=== PATIENT | female | born 1960 | race Caucasian/White ===

== ENCOUNTER 2020-09-18 18:03 | Inpatient (IN) | payer MEDICAID, OTHER ==
[~2020-09-18] VITALS: Ht 170.2 cm; Wt 62.1 kg
--- NOTE | 2020-09-18 18:16 | NUR ---
TRANSFER BY [facility] FROM [facility] IN [facility] FOR NSTEMI. PT ARRIVED WITH HEPARIN GTT INFUSING AT 6.1ML/HR, PER REPORT PT RECEIVED 3000 UNITS OF HEPARIN BOLUS, 324MG ASA, AND 1L NS BOLUS. PT PLACED ON ALL MONITORS. FALL PRECAUTIONS IN PLACE. VSS.
--- NOTE | 2020-09-18 18:33 | NUR ---
DR. CHANDLER AT BEDSIDE FOR EVAL.
[2020-09-18] MEDS ORDERED: HEPARIN 5,000 UNITS/ML, 1ML IV PRN (19:00)
[2020-09-18] MEDS ORDERED: HEPARIN 25,000 UNITS/250ML PMX 250 ML IV PRN (19:00)
[2020-09-18] MEDS ORDERED: HEPARIN 5,000 UNITS/ML, 1ML IV ONE (19:00)
[2020-09-18] MEDS ORDERED: SODIUM CHLORIDE FLUSH 10ML SYR IVF ONE (19:00)
[2020-09-18 19:06] LABS: BASOPHILS % (AUTO) 1 % (0-1); EOSINOPHILS % (AUTO) 2 % (1-7); LYMPHOCYTES % (AUTO) 20 % (22-44); MEAN CORPUSCULAR HEMOGLOBIN 28.9 pg (27.0-34.8); MEAN CORPUSCULAR HGB CONC 32.5 g/dL (32.4-35.8); MEAN PLATELET VOLUME 8.6 fL (7.4-10.4); MONOCYTES % (AUTO) 5 % (2-9); NEUTROPHILS % (AUTO) 71 % (42-75); PLATELET COUNT 357 x10^3/uL (130-400); RED BLOOD COUNT 3.18 x10^6/uL (3.82-5.3); RED CELL DISTRIBUTION WIDTH 16.1 % (9.6-15.2)
[2020-09-18 19:07] LABS: MD NO
--- NOTE | 2020-09-18 19:07 | NUR ---
REPORT GIVEN TO ANGLE MURGUIA.
--- NOTE | 2020-09-18 19:11 | NUR ---
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 PER JAMAAL OKAY TO CONTINUE AT CURRENT RATE AND ADJUST ONCE ANTI 10A RESULTS COME BACK.
[2020-09-18 19:13] LABS: MICROSCOPIC INDICATED
--- NOTE | 2020-09-18 19:15 | NUR ---
RECEIVED REPORT FROM SHANTAL CHAPPELL. PT RESTING ON BARBY. JEWELL. MONITORS IN PLACE. AWAITING ANTI-XA FOR ANY HEPARIN GTT CHANGES.
[2020-09-18 19:18] LABS: ALANINE AMINOTRANSFERASE 20 U/L (12-78); ALBUMIN 2.6 g/dL (3.4-5.0); ANION GAP 7 mmol/L (5-15); CALCIUM 7.8 mg/dL (8.5-10.1); CHLORIDE 106 mmol/L (98-107); CREATININE 1.21 mg/dL (0.55-1.02)
[2020-09-18 19:19] LABS: INTERNATIONAL NORMALIZED RATIO 1.11 (0.93-1.1); PROTHROMBIN TIME 11.9 Seconds (9.6-11.5)
[2020-09-18 19:21] LABS: AMPHETAMINE SCREEN, URINE Negative (Negative); BARBITURATE SCREEN, URINE Negative (Negative); BENZODIAZEPINE SCREEN, URINE Negative (Negative); CANNABINOID SCREEN, URINE Negative (Negative); COCAINE SCREEN, URINE Negative (Negative); METHADONE SCREEN, URINE Negative (Negative); OPIATE SCREEN, URINE Negative (Negative)
[2020-09-18 19:23] LABS: ALKALINE PHOSPHATASE 173 U/L (45-117); BILIRUBIN,TOTAL 0.6 mg/dL (0.2-1.0); TOTAL PROTEIN 7.1 g/dL (6.4-8.2)
[2020-09-18 19:26] LABS: TROPONIN I 0.214 ng/mL (0.000-0.045)
--- NOTE | 2020-09-18 19:28 | NUR ---
PT RESTING ON GURNEY. NADN. SEAMAN.
[2020-09-18] MEDS ORDERED: CEFTRIAXONE 2 GM in DEXTROSE 5% 50 ML IVPB ONE (19:30)
[2020-09-18] MEDS ORDERED: HEPARIN 5,000 UNITS/ML, 1ML ONE (19:36)
[2020-09-18] MEDS ORDERED: INSULIN REGULAR 100 UNITS/ML, 3ML VIAL SQ-INSULIN ONE (20:00)
[2020-09-18] MEDS ORDERED: INSULIN SINGLE DOSE, ER ONE (20:16)
--- NOTE | 2020-09-18 20:43 | NUR ---
CT DELAY. LAB IN ROOM AT 2034, ADMITTING MD IN ROOM 2044.
--- NOTE | 2020-09-18 20:51 | NUR ---
BC X 2 DRAWN.
[2020-09-18] MEDS ORDERED: ASPIRIN 81 MG TABLET CHEW PO ONE (21:00)
[2020-09-18] MEDS ORDERED: MELATONIN 5 MG TABLET PO PRN (21:00)
[2020-09-18] MEDS ORDERED: LABETALOL 5MG/ML, 20ML IVPush PRN (21:00)
[2020-09-18] MEDS: INSULIN LISPRO 100 UNITS/ML, PEN SQ-INSULIN SCH (21:00)
[2020-09-18] MEDS ORDERED: BISACODYL 10 MG SUPP PR PRN (21:00)
--- NOTE | 2020-09-18 21:01 | NUR ---
PT TAKEN TO CT IN STABLE CONDITION.
--- NOTE | 2020-09-18 21:07 | NUR ---
REPORT GIVEN TO DOM NUNEZ RN. ALL QUESTIONS ANSWERED. PT CURRENTLY IN CT. WHEN PT RETURNS WILL BE TRANSFERRED.
--- NOTE | 2020-09-18 21:15 | NUR ---
UNABLE TO COMPLETE CT. PT TOO COMBATIVE , TRYING TO GET OFF TABLE AND PULLED OUR IV IN RIGHT HAND.
--- NOTE | 2020-09-18 21:40 | NUR ---
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 SPOKE W/ [facility] ABILIO. PER [facility] GIVE PT 1 MG IV ATIVAN WHEN PT IS LEAVING FOR CT. DISCUSSED PT'S STATUS PT IS LETHARGIC IN ROOM. PER [facility] ABILIO OKAY TO GIVE ATIVAN TO GET CT COMPLETED. [facility] NOTIFIED PT NEEDS SECOND PIV FOR IV ATIVAN DOSE PT PULLED OUT SECOND IV WHILE IN CT. PER [facility] OKAY TO WAIT UNTIL SECOND PIV ESTABLISHED.
[2020-09-18] MEDS ORDERED: LORazepam 2 MG/ML, 1ML IVPush ONE (22:00)
--- NOTE | 2020-09-18 22:09 | NUR ---
2ND PIV ESTABLISHED. SPOKE W/ CT WHO STATES THEY WILL COME DOWN. 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
[2020-09-18] MEDS ORDERED: ASPIRIN 81 MG TABLET CHEW ONE (22:14)
[2020-09-18] MEDS ORDERED: LORazepam 2 MG/ML, 1ML ONE (22:15)
--- NOTE | 2020-09-18 22:25 | NUR ---
PER ERP DR. MENENDEZ NO NEED TO WAIT FOR CT RESULTS. OKAY TO TRANSFER PT UPSTAIRS ONCE CT COMPLETED.
[2020-09-18 22:51] VITALS: BP 153/100
[2020-09-18 23:12] VITALS: BP 167/102
[2020-09-19 01:58] LABS: BASOPHILS % (AUTO) 1 % (0-1); EOSINOPHILS % (AUTO) 4 % (1-7); LYMPHOCYTES % (AUTO) 31 % (22-44); MEAN CORPUSCULAR HEMOGLOBIN 28.5 pg (27.0-34.8); MEAN CORPUSCULAR HGB CONC 32.2 g/dL (32.4-35.8); MEAN PLATELET VOLUME 8.3 fL (7.4-10.4); MONOCYTES % (AUTO) 7 % (2-9); NEUTROPHILS % (AUTO) 57 % (42-75); PLATELET COUNT 371 x10^3/uL (130-400); RED BLOOD COUNT 3.17 x10^6/uL (3.82-5.3); RED CELL DISTRIBUTION WIDTH 16.3 % (9.6-15.2)
[2020-09-19 01:59] LABS: MD NO
[2020-09-19 02:14] LABS: ANION GAP 5 mmol/L (5-15); CALCIUM 7.9 mg/dL (8.5-10.1); CHLORIDE 111 mmol/L (98-107); CHOLESTEROL, TOTAL 98 mg/dL (140-239); TRIGLYCERIDES 52 mg/dL (50-200); VLDL CHOLESTEROL 10 mg/dL (0-25)
[2020-09-19 02:19] LABS: CHOL/HDL RATIO 2.6; HDL CHOL % 39 % (28-40); HDL CHOLESTEROL (DIRECT) 38 mg/dL (40-60); LDL CHOLESTEROL,CALCULATED 50 mg/dL (54-169); LDL/HDL RATIO 1.3 (0.5-3.0); TROPONIN I 0.264 ng/mL (0.000-0.045)
[2020-09-19 03:53] VITALS: BP 148/87
[2020-09-19 07:18] VITALS: BP 122/78
[2020-09-19 08:10] LABS: TROPONIN I 0.279 ng/mL (0.000-0.045)
[2020-09-19] MEDS: INSULIN LISPRO 100 UNITS/ML, PEN SQ-INSULIN SCH ×4 (08:17→20:58)
[2020-09-19] MEDS: ACETAMINOPHEN 325 MG TABLET PO PRN (12:04)
[2020-09-19] MEDS: LIDODERM 5% PATCH TD PRN (12:05)
[2020-09-19 13:43] VITALS: BP 151/90
[2020-09-19] MEDS: ENOXAPARIN 40 MG/0.4 ML SQ SCH (14:50)
[2020-09-19] MEDS: ASPIRIN 81 MG TABLET EC PO SCH (17:34)
[2020-09-19 18:59] VITALS: BP 154/97
[2020-09-19] MEDS ORDERED: CEFTRIAXONE 2 GM in DEXTROSE 5% 50 ML IVPB SCH (19:30)
[2020-09-19] MEDS: CEFTRIAXONE 2 GM in DEXTROSE 5% 50 ML IVPB SCH (20:58)
[2020-09-20 01:41] VITALS: BP 146/86
[2020-09-20] MEDS: ASPIRIN 81 MG TABLET EC PO SCH (06:22)
[2020-09-20 06:32] LABS: ANION GAP 5 mmol/L (5-15); CHLORIDE 106 mmol/L (98-107); CREATININE 1.45 mg/dL (0.55-1.02)
[2020-09-20 06:36] LABS: TROPONIN I 0.173 ng/mL (0.000-0.045)
[2020-09-20] MEDS: INSULIN LISPRO 100 UNITS/ML, PEN SQ-INSULIN SCH ×4 (08:18→20:51)
[2020-09-20 08:19] VITALS: BP 124/73
[2020-09-20] MEDS ORDERED: INSULIN LISPRO 100 UNITS/ML, PEN SQ-INSULIN ONE (09:00)
[2020-09-20] MEDS: INSULIN GLARGINE 100 UNITS/ML, PEN SQ-INSULIN SCH ×2 (09:19→20:52)
[2020-09-20 15:30] VITALS: BP 156/76
[2020-09-20] MEDS: ENOXAPARIN 40 MG/0.4 ML SQ SCH (16:00)
[2020-09-20] MEDS: LISINOPRIL 10 MG TABLET PO SCH (16:55)
[2020-09-20] MEDS: CARVEDILOL 6.25 MG TABLET PO SCH (16:55)
[2020-09-20] MEDS: LIDODERM 5% PATCH TD PRN (20:23)
[2020-09-20] MEDS: ACETAMINOPHEN 325 MG TABLET PO PRN (20:23)
[2020-09-20 20:48] VITALS: BP 136/69
[2020-09-20] MEDS: CEFTRIAXONE 2 GM in DEXTROSE 5% 50 ML IVPB SCH (20:51)
[2020-09-21] MEDS ORDERED: LORazepam 0.5MG TABLET PO ONE (00:30)
[2020-09-21 02:05] VITALS: BP 107/64
[2020-09-21 05:29] LABS: BASOPHILS % (AUTO) 1 % (0-1); EOSINOPHILS % (AUTO) 3 % (1-7); LYMPHOCYTES % (AUTO) 22 % (22-44); MEAN CORPUSCULAR HEMOGLOBIN 28.7 pg (27.0-34.8); MEAN CORPUSCULAR HGB CONC 32.5 g/dL (32.4-35.8); MEAN PLATELET VOLUME 8.4 fL (7.4-10.4); MONOCYTES % (AUTO) 8 % (2-9); NEUTROPHILS % (AUTO) 66 % (42-75); PLATELET COUNT 311 x10^3/uL (130-400); RED BLOOD COUNT 3.22 x10^6/uL (3.82-5.3); RED CELL DISTRIBUTION WIDTH 16.3 % (9.6-15.2)
[2020-09-21 05:40] LABS: MD NO
[2020-09-21 05:43] LABS: ANION GAP 4 mmol/L (5-15); CALCIUM 7.9 mg/dL (8.5-10.1); CHLORIDE 109 mmol/L (98-107)
[2020-09-21 05:44] LABS: CREATININE 1.48 mg/dL (0.55-1.02)
[2020-09-21 05:54] VITALS: BP 121/65
[2020-09-21] MEDS: CARVEDILOL 6.25 MG TABLET PO SCH ×2 (05:55→17:07)
[2020-09-21] MEDS: ASPIRIN 81 MG TABLET EC PO SCH (05:55)
[2020-09-21 07:57] VITALS: BP 126/74
[2020-09-21] MEDS: LISINOPRIL 10 MG TABLET PO SCH ×2 (09:43→20:05)
[2020-09-21] MEDS: INSULIN LISPRO 100 UNITS/ML, PEN SQ-INSULIN SCH ×4 (09:47→20:17)
[2020-09-21] MEDS: INSULIN GLARGINE 100 UNITS/ML, PEN SQ-INSULIN SCH ×2 (09:48→20:17)
[2020-09-21 13:18] VITALS: BP 138/73
[2020-09-21] MEDS: ENOXAPARIN 40 MG/0.4 ML SQ SCH (17:06)
[2020-09-21] MEDS: ACETAMINOPHEN 325 MG TABLET PO PRN (18:25)
[2020-09-21 18:37] VITALS: BP 121/73
[2020-09-21] MEDS: CEFEPIME 2 GM in DEXTROSE 5% 100 ML IV SCH (20:04)
[2020-09-21 23:41] VITALS: BP 113/65
[2020-09-22] MEDS: ACETAMINOPHEN 325 MG TABLET PO PRN ×2 (00:17→18:10)
[2020-09-22] MEDS: CEFEPIME 2 GM in DEXTROSE 5% 100 ML IV SCH ×3 (03:34→20:12)
[2020-09-22] MEDS: CARVEDILOL 6.25 MG TABLET PO SCH ×2 (05:27→18:08)
[2020-09-22] MEDS: ASPIRIN 81 MG TABLET EC PO SCH (05:27)
[2020-09-22 05:31] LABS: BASOPHILS % (AUTO) 1 % (0-1); EOSINOPHILS % (AUTO) 3 % (1-7); LYMPHOCYTES % (AUTO) 24 % (22-44); MEAN CORPUSCULAR HEMOGLOBIN 28.4 pg (27.0-34.8); MEAN CORPUSCULAR HGB CONC 32.1 g/dL (32.4-35.8); MEAN PLATELET VOLUME 8.5 fL (7.4-10.4); MONOCYTES % (AUTO) 7 % (2-9); NEUTROPHILS % (AUTO) 65 % (42-75); PLATELET COUNT 341 x10^3/uL (130-400); RED BLOOD COUNT 3.28 x10^6/uL (3.82-5.3); RED CELL DISTRIBUTION WIDTH 16.1 % (9.6-15.2)
[2020-09-22 05:33] LABS: CHLORIDE 109 mmol/L (98-107)
[2020-09-22 05:41] LABS: ANION GAP 6 mmol/L (5-15); CALCIUM 7.6 mg/dL (8.5-10.1); CREATININE 1.25 mg/dL (0.55-1.02)
[2020-09-22 05:42] LABS: MD NO
[2020-09-22 06:47] VITALS: BP 116/68
[2020-09-22] MEDS: LISINOPRIL 10 MG TABLET PO SCH ×2 (09:59→20:17)
[2020-09-22] MEDS: INSULIN GLARGINE 100 UNITS/ML, PEN SQ-INSULIN SCH ×2 (09:59→20:31)
[2020-09-22] MEDS: INSULIN LISPRO 100 UNITS/ML, PEN SQ-INSULIN SCH ×4 (10:00→20:31)
[2020-09-22 12:30] VITALS: BP 146/80
[2020-09-22] MEDS: ENOXAPARIN 40 MG/0.4 ML SQ SCH (16:20)
[2020-09-22] MEDS ORDERED: CALCIUM CARBONATE 500 MG TAB.CHEW PO ONE (19:30)
[2020-09-22 20:20] VITALS: BP 133/77
[2020-09-23 01:37] VITALS: BP 130/71
[2020-09-23] MEDS: CEFEPIME 2 GM in DEXTROSE 5% 100 ML IV SCH ×3 (03:05→19:54)
[2020-09-23 05:43] VITALS: BP 135/84
[2020-09-23] MEDS: CARVEDILOL 6.25 MG TABLET PO SCH ×2 (05:44→16:40)
[2020-09-23] MEDS: ASPIRIN 81 MG TABLET EC PO SCH (05:44)
[2020-09-23 05:55] LABS: ANION GAP 6 mmol/L (5-15); CALCIUM 7.8 mg/dL (8.5-10.1); CHLORIDE 112 mmol/L (98-107); CREATININE 1.05 mg/dL (0.55-1.02)
[2020-09-23] MEDS: INSULIN LISPRO 100 UNITS/ML, PEN SQ-INSULIN SCH ×5 (07:00→20:20)
[2020-09-23 07:52] VITALS: BP 110/75
[2020-09-23] MEDS: LISINOPRIL 5 MG TABLET PO SCH ×2 (09:19→19:53)
[2020-09-23] MEDS: INSULIN GLARGINE 100 UNITS/ML, PEN SQ-INSULIN SCH ×2 (09:20→20:19)
[2020-09-23] MEDS: ACETAMINOPHEN 325 MG TABLET PO PRN ×2 (10:03→21:39)
[2020-09-23 12:08] VITALS: BP 138/74
[2020-09-23] MEDS: ENOXAPARIN 40 MG/0.4 ML SQ SCH ×2 (16:00→16:40)
[2020-09-23 18:32] VITALS: BP 120/72
[2020-09-23 19:35] VITALS: BP 132/81
[2020-09-23] MEDS: PANTOPRAZOLE 40 MG IV IVPush SCH (19:54)
[2020-09-23] MEDS ORDERED: LORazepam 0.5MG TABLET PO ONE (20:00)
[2020-09-24 02:07] VITALS: BP 144/75
[2020-09-24 06:07] LABS: BASOPHILS % (AUTO) 1 % (0-1); EOSINOPHILS % (AUTO) 3 % (1-7); LYMPHOCYTES % (AUTO) 18 % (22-44); MEAN CORPUSCULAR HEMOGLOBIN 28.6 pg (27.0-34.8); MEAN CORPUSCULAR HGB CONC 32.5 g/dL (32.4-35.8); MONOCYTES % (AUTO) 8 % (2-9); NEUTROPHILS % (AUTO) 70 % (42-75); PLATELET COUNT 314 x10^3/uL (130-400); RED BLOOD COUNT 2.68 x10^6/uL (3.82-5.3); RED CELL DISTRIBUTION WIDTH 16.5 % (9.6-15.2)
[2020-09-24 06:10] LABS: MD NO
[2020-09-24 06:21] LABS: ANION GAP 6 mmol/L (5-15); CALCIUM 8.1 mg/dL (8.5-10.1); CHLORIDE 114 mmol/L (98-107)
[2020-09-24 06:22] LABS: CREATININE 1.23 mg/dL (0.55-1.02)
[2020-09-24 06:27] VITALS: BP 121/78
[2020-09-24] MEDS: CARVEDILOL 6.25 MG TABLET PO SCH ×2 (06:29→16:30)
[2020-09-24] MEDS: ASPIRIN 81 MG TABLET EC PO SCH (06:29)
[2020-09-24] MEDS: PANTOPRAZOLE 40 MG IV IVPush SCH (06:29)
[2020-09-24] MEDS: INSULIN LISPRO 100 UNITS/ML, PEN SQ-INSULIN SCH ×4 (07:00→20:51)
[2020-09-24] MEDS: INSULIN GLARGINE 100 UNITS/ML, PEN SQ-INSULIN SCH ×2 (11:06→20:52)
[2020-09-24 13:48] VITALS: BP 137/70
[2020-09-24] MEDS: ENOXAPARIN 40 MG/0.4 ML SQ SCH (16:30)
[2020-09-24 16:33] VITALS: BP 139/75
[2020-09-24] MEDS: PANTOPRAZOLE 40MG TABLET PO SCH (20:50)
[2020-09-24] MEDS ORDERED: LORazepam 0.5MG TABLET PO ONE (21:00)
[2020-09-24 22:15] VITALS: BP 137/78
[2020-09-24] MEDS ORDERED: HALOPERIDOL 5 MG/ML IM ONE (23:30)
[2020-09-25 04:31] VITALS: BP 151/90
[2020-09-25] MEDS: CARVEDILOL 6.25 MG TABLET PO SCH ×2 (06:41→17:51)
[2020-09-25] MEDS: ASPIRIN 81 MG TABLET EC PO SCH (06:41)
[2020-09-25 07:20] VITALS: BP 138/79
[2020-09-25 07:52] LABS: CALCIUM 8.3 mg/dL (8.5-10.1); CREATININE 1.12 mg/dL (0.55-1.02)
[2020-09-25 08:02] LABS: ANION GAP 6 mmol/L (5-15); CHLORIDE 112 mmol/L (98-107)
[2020-09-25] MEDS: INSULIN LISPRO 100 UNITS/ML, PEN SQ-INSULIN SCH ×4 (08:14→21:36)
[2020-09-25] MEDS ORDERED: GLUCAGON 1 MG IM PRN (10:00)
[2020-09-25] MEDS: SODIUM CHLORIDE FLUSH 10ML SYR IVF SCH ×2 (10:00→21:06)
[2020-09-25] MEDS ORDERED: DEXTROSE 50%, 50ML SYRINGE IVPush PRN (10:00)
[2020-09-25] MEDS ORDERED: DEXTROSE 4 GM TAB.CHEW PO PRN (10:00)
[2020-09-25] MEDS: PANTOPRAZOLE 40MG TABLET PO SCH ×2 (10:13→21:05)
[2020-09-25 12:50] VITALS: BP 123/68
[2020-09-25] MEDS ORDERED: FURO-93 PO ×2 (14:57)
[2020-09-25] MEDS ORDERED: ASPI81TA45 PO (14:57)
[2020-09-25] MEDS ORDERED: CARV6.2512 PO (14:57)
[2020-09-25] MEDS: ENOXAPARIN 40 MG/0.4 ML SQ SCH (17:51)
[2020-09-25 18:41] VITALS: BP 134/81
[2020-09-25] MEDS: FUROSEMIDE 20 MG TABLET PO SCH (21:05)
[2020-09-25] MEDS: ACETAMINOPHEN 325 MG TABLET PO PRN (22:35)
[2020-09-25] MEDS ORDERED: IBUPROFEN 600 MG TABLET PO ONE (23:00)
[2020-09-25] MEDS: MELATONIN 5 MG TABLET PO PRN (23:34)
[2020-09-26 03:13] VITALS: BP 116/69
[2020-09-26] MEDS: ASPIRIN 81 MG TABLET EC PO SCH (06:03)
[2020-09-26] MEDS: CARVEDILOL 6.25 MG TABLET PO SCH ×2 (06:03→18:25)
[2020-09-26 07:26] LABS: ANION GAP 5 mmol/L (5-15); CALCIUM 8.2 mg/dL (8.5-10.1); CHLORIDE 109 mmol/L (98-107); CREATININE 1.47 mg/dL (0.55-1.02)
[2020-09-26 07:39] VITALS: BP 132/65
[2020-09-26] MEDS: PANTOPRAZOLE 40MG TABLET PO SCH ×2 (08:22→20:26)
[2020-09-26] MEDS: SODIUM CHLORIDE FLUSH 10ML SYR IVF SCH ×2 (08:22→20:28)
[2020-09-26] MEDS: FUROSEMIDE 20 MG TABLET PO SCH ×2 (08:22→20:26)
[2020-09-26] MEDS: INSULIN LISPRO 100 UNITS/ML, PEN SQ-INSULIN SCH ×4 (08:23→20:27)
[2020-09-26 12:38] VITALS: BP 148/72
[2020-09-26] MEDS ORDERED: FURO-93 PO (13:12)
[2020-09-26] MEDS ORDERED: INSU100I11 SQ-INSULIN (13:24)
[2020-09-26] MEDS: ENOXAPARIN 40 MG/0.4 ML SQ SCH (15:54)
[2020-09-26 18:25] VITALS: BP 142/77
[2020-09-26] MEDS: ACETAMINOPHEN 325 MG TABLET PO PRN (18:25)
[2020-09-26 19:03] VITALS: BP 143/77
[2020-09-26 19:17] VITALS: BP 135/73
[2020-09-26] MEDS: MELATONIN 5 MG TABLET PO PRN (20:26)
[2020-09-27 00:37] VITALS: BP 151/84
[2020-09-27] MEDS: CARVEDILOL 6.25 MG TABLET PO SCH (06:18)
[2020-09-27] MEDS: ASPIRIN 81 MG TABLET EC PO SCH (06:19)
[2020-09-27 07:17] VITALS: BP 133/77
[2020-09-27] MEDS: FUROSEMIDE 20 MG TABLET PO SCH (08:12)
[2020-09-27] MEDS: PANTOPRAZOLE 40MG TABLET PO SCH (08:12)
[2020-09-27] MEDS: SODIUM CHLORIDE FLUSH 10ML SYR IVF SCH (08:12)
[2020-09-27] MEDS: INSULIN LISPRO 100 UNITS/ML, PEN SQ-INSULIN SCH ×2 (08:12→11:44)
[2020-09-27] MEDS ORDERED: INSULIN GLARGINE 100 UNITS/ML, PEN SQ-INSULIN SCH (09:00)
== END 2020-09-27 12:39 | disposition home or self-care (01) | DRG 720 ==
LOC: ED 19:53 → EDIP 20:07 → 5SO 22:43 → 3N 09-23 11:54
PROVIDERS: ADMIT Internal Medicine; ATTEND Internal Medicine
PROC: 0T9B70Z Drainage of Bladder with Drainage Device, Via Natural or Artificial Opening (ICD-10-PCS; principal; 2020-09-18)
DX: A41.9 Sepsis, unspecified organism (principal); I21.4 Non-ST elevation (NSTEMI) myocardial infarction; E43 Unspecified severe protein-calorie malnutrition; N17.0 Acute kidney failure with tubular necrosis; I50.22 Chronic systolic (congestive) heart failure; I44.7 Left bundle-branch block, unspecified; N30.80 Other cystitis without hematuria; Z68.1 Body mass index [BMI] 19.9 or less, adult; Z79.4 Long term (current) use of insulin; Z79.899 Other long term (current) drug therapy; Z89.511 Acquired absence of right leg below knee; G93.41 Metabolic encephalopathy; D63.8 Anemia in other chronic diseases classified elsewhere; E11.51 Type 2 diabetes mellitus with diabetic peripheral angiopathy without gangrene; E11.65 Type 2 diabetes mellitus with hyperglycemia; E87.5 Hyperkalemia; F17.200 Nicotine dependence, unspecified, uncomplicated; Z89.512 Acquired absence of left leg below knee; Z91.14 Patient's other noncompliance with medication regimen; Z96.641 Presence of right artificial hip joint; I11.0 Hypertensive heart disease with heart failure
CPT/HCPCS: 36415; 70450; 71045; 74176; 80048; 80053; 80061; 80307; 80320; 81001; 82140; 82947; 82962; 83036; 83605; 83735; 84100; 84132; 84443; 84484; 85014; 85018; 85025; 85520; 85610; 85730; 87040; 87077; 87086; 87186; 93005; 93306; 93356; 96374; 99291; G0378; J0696; J1644; J1650; C9113; G0480; J1630; J1815; J2060